=== PATIENT | male | born 1955 | race African-American/Black ===

== ENCOUNTER 2017-10-24 00:56 | Emergency (ER) | payer BC, MEDICAID | END 2017-10-24 01:19 | disposition left against medical advice (07) | LOC: ER 00:56 | DX: Z53.21 Procedure and treatment not carried out due to patient leaving prior to being seen by health care provider (principal) ==

== ENCOUNTER 2017-10-27 04:31 | Emergency (ER) | payer MEDICARE, MEDICAID ==
[~2017-10-27] VITALS: Ht 185.4 cm; Wt 118.0 kg
[2017-10-27 04:32] VITALS: BP 160/93
== END 2017-10-27 08:32 | disposition left against medical advice (07) ==
LOC: ER 04:31
DX: M25.569 Pain in unspecified knee (principal); Z53.21 Procedure and treatment not carried out due to patient leaving prior to being seen by health care provider

== ENCOUNTER 2018-01-13 05:19 | Emergency (ER) | payer MEDICARE, MEDICAID ==
[~2018-01-13] VITALS: Ht 185.4 cm; Wt 109.0 kg
[2018-01-13 05:33] VITALS: BP 137/99
== END 2018-01-13 08:00 | disposition left against medical advice (07) ==
LOC: ER 07:18
DX: I10 Essential (primary) hypertension (principal); Z53.21 Procedure and treatment not carried out due to patient leaving prior to being seen by health care provider

== ENCOUNTER 2018-04-09 01:55 | Emergency (ER) | payer MEDICARE, MEDICAID ==
[~2018-04-09] VITALS: Ht 185.4 cm; Wt 104.0 kg
[2018-04-09] MEDS ORDERED: HYDROCHLOROTHIAZIDE 25MG TABLET PO ONE (03:30)
[2018-04-09] MEDS ORDERED: CLONIDINE 0.1MG TABLET PO ONE (03:30)
[2018-04-09] MEDS ORDERED: HYDROCHLOROTHIAZIDE 25MG TABLET PO NR (03:45)
[2018-04-09 06:17] VITALS: BP 169/101
== END 2018-04-09 06:35 | disposition home or self-care (01) ==
LOC: ER 02:55
DX: I10 Essential (primary) hypertension (principal); F17.200 Nicotine dependence, unspecified, uncomplicated; Z79.899 Other long term (current) drug therapy
CPT/HCPCS: 99283

== ENCOUNTER 2018-04-23 23:50 | Emergency (ER) | payer MEDICARE, MEDICAID | END 2018-04-24 01:55 | disposition left against medical advice (07) | LOC: ER 04-24 01:52 | DX: Z53.21 Procedure and treatment not carried out due to patient leaving prior to being seen by health care provider (principal) ==

== ENCOUNTER 2018-12-02 01:05 | Emergency (ER) | payer OTHER, MEDICAID ==
[~2018-12-02] VITALS: Ht 185.4 cm; Wt 96.0 kg
[2018-12-02 02:10] VITALS: BP 128/87
== END 2018-12-02 02:56 | disposition left against medical advice (07) ==
LOC: ER 01:05
DX: Z53.21 Procedure and treatment not carried out due to patient leaving prior to being seen by health care provider (principal); I10 Essential (primary) hypertension; F20.9 Schizophrenia, unspecified; M19.90 Unspecified osteoarthritis, unspecified site; F17.200 Nicotine dependence, unspecified, uncomplicated

== ENCOUNTER 2019-02-19 00:55 | Emergency (ER) | payer OTHER, MEDICAID ==
[~2019-02-19] VITALS: Ht 185.4 cm; Wt 100.0 kg
[2019-02-19] MEDS ORDERED: KETOROLAC 30MG/ML VIAL IM ONE (02:15)
[2019-02-19 02:24] VITALS: BP 110/67
== END 2019-02-19 02:25 | disposition left against medical advice (07) ==
LOC: ER 01:24
DX: M19.90 Unspecified osteoarthritis, unspecified site (principal); G89.29 Other chronic pain; M25.562 Pain in left knee; M25.561 Pain in right knee; F20.9 Schizophrenia, unspecified; I10 Essential (primary) hypertension; F17.210 Nicotine dependence, cigarettes, uncomplicated; Z98.49 Cataract extraction status, unspecified eye
CPT/HCPCS: 96372; 99283; J1885

== ENCOUNTER 2019-04-25 23:35 | Emergency (ER) | payer OTHER, MEDICAID | END 2019-04-26 00:04 | disposition left against medical advice (07) | LOC: ER 23:35 | DX: M25.562 Pain in left knee (principal); M25.561 Pain in right knee; Z53.21 Procedure and treatment not carried out due to patient leaving prior to being seen by health care provider ==

== ENCOUNTER 2025-02-20 01:29 | Emergency (ER) | payer BC, MEDICAID ==
[~2025-02-20] VITALS: Ht 185.4 cm; Wt 90.8 kg
[2025-02-20 01:42] VITALS: O2SAT 99
[2025-02-20] MEDS ORDERED: IBUP-2029 MT (02:16)
[2025-02-20] MEDS: KETOROLAC 30MG/ML VIAL IM ONE (02:39)
[2025-02-20] MEDS: ACETAMINOPHEN 325MG TABLET PO ONE (02:39)
[2025-02-20] MEDS: LIDOCAINE 5% PATCH TOP SCH (02:43)
[2025-02-20 02:44] VITALS: BP 130/80; PULSE 86; RESP 18; TEMP 36.6; O2SAT 99
== END 2025-02-20 02:47 | disposition home or self-care (01) ==
LOC: ER 01:29
DX: M54.2 Cervicalgia (principal); I10 Essential (primary) hypertension; F20.9 Schizophrenia, unspecified; Z98.890 Other specified postprocedural states
CPT/HCPCS: 99283; 96372; J1885

== ENCOUNTER 2025-02-24 22:36 | Emergency (ER) | payer BC, MEDICAID ==
[~2025-02-24] VITALS: Ht 188 cm; Wt 100.2 kg
[~2025-02-24 22:36] MED LIST: IBUP-2029 MT
[2025-02-24 22:41] VITALS: O2SAT 97
[2025-02-24 22:43] VITALS: BP 165/90; PULSE 105; RESP 20; TEMP 36.7; O2SAT 100
[2025-02-24] MEDS ORDERED: RISP1SOL4 MT (23:17)
[2025-02-24] MEDS ORDERED: HYDR50TA MT (23:17)
== END 2025-02-24 23:45 | disposition home or self-care (01) ==
LOC: ER 22:57
DX: I10 Essential (primary) hypertension (principal); F20.9 Schizophrenia, unspecified; J44.9 Chronic obstructive pulmonary disease, unspecified; M19.90 Unspecified osteoarthritis, unspecified site; Z76.0 Encounter for issue of repeat prescription; Z79.899 Other long term (current) drug therapy; Z91.148 Patient's other noncompliance with medication regimen for other reason
CPT/HCPCS: 99281